=== PATIENT | male | born 1960 | race Caucasian/White ===

== ENCOUNTER → 2019-06-29 | Outpatient (CLI) | payer SELFPAY ==
[~2019-06-29] MED LIST: CATHETER FLUSH 10 ML SYR IV PRN; HOLD METFORMIN - RECEIVED CONTRAST 20 ML VIAL IV SCH; IOHEXOL 350 MG/ML 100 ML (OMNIPAQUE 350) VIAL IV ONE; NS 100 ML (IVPB) BAG IV ONE
--- NOTE | 2019-06-29 14:57 | Diagnostic Imaging Report ---
PROCEDURE: CT abdomen and pelvis with contrast. TECHNIQUE: Multiple contiguous axial images were obtained through the abdomen and pelvis after administration of intravenous contrast. Auto Exposure Controls were utilized during the CT exam to meet ALARA standards for radiation dose reduction. INDICATION: Upper abdominal pressure. COMPARISON: No prior studies are available for comparison. FINDINGS: Imaging through the lung bases does show some linear atelectasis or scarring in the right lower lobe. The liver does show some generalized low density consistent with hepatic steatosis. No discrete liver mass is detected. The gallbladder is unremarkable. No biliary ductal dilatation is seen. The pancreas and spleen are unremarkable. No adrenal mass is detected. Kidneys are unremarkable apart from tiny cortical low densities in the left kidney, too small to characterize but most likely cysts. Aorta is non-aneurysmal. There is a mildly prominent lymph node in the upper abdomen just cephalad to the pancreatic head with short axis measurement of 14 mm. Mildly prominent lymph node adjacent to the main portal vein is seen measuring 14 mm. There are shotty lymph nodes in the portacaval and left periaortic region as well as aortocaval region. The small and large bowel loops are normal in caliber. There is no obstruction. Appendix is visualized in the right lower quadrant and appears unremarkable. There is no free fluid in the abdomen. No fluid collection or free air is identified. No inflammatory changes are seen. The bladder is unremarkable. Prostate is unremarkable. No definite pelvic lymphadenopathy is seen. The bony structures are nonacute. IMPRESSION: 1. Right basilar subsegmental atelectasis or scarring. 2. Hepatic steatosis. 3. Mildly prominent lymph nodes in the upper abdomen, as described, exact etiology is indeterminate. Follow-up could be performed. No acute feature in the abdomen is identified. Dictated by: Dictated on workstation # [id number]
== END ==
LOC: RAD 13:40
PROVIDERS: ATTEND Family Medicine
DX: K76.0 Fatty (change of) liver, not elsewhere classified (principal); R59.0 Localized enlarged lymph nodes
CPT/HCPCS: 74177

== ENCOUNTER → 2019-08-23 | Outpatient (CLI) | payer OTHER ==
[~2019-08-23] VITALS: Ht 183 cm; Wt 100.0 kg
[~2019-08-23] MED LIST changes: -HOLD METFORMIN - RECEIVED CONTRAST 20 ML VIAL IV SCH; -IOHEXOL 350 MG/ML 100 ML (OMNIPAQUE 350) VIAL IV ONE; -NS 100 ML (IVPB) BAG IV ONE; +REGADENOSON 0.4 MG/5 ML SYR (LEXISCAN) IV ONE
[2019-08-24 16:44] VITALS: BP 148/97
--- NOTE | 2019-08-24 16:44 | Cardiology Stress Test Report ---
Stress Test Report Type of NM Stress Test: Test Type: LEXISCAN 0.4MG/5ML Date of Procedure/Referring: Date of Procedure: August 23, 2019 PCP Janny Lee MD Admitting Physician Abdi Fierro MD Indications: Shortness of breath Baseline Heart Rate: 80 Baseline Blood Pressure: Blood Pressure Systolic: 148 Blood Pressure Diastolic: 97 Baseline EKG: Baseline EKG: Sinus rhythm Summary & Conclusion: Summary: The patient was brought to the stress lab after informed consent was taken. Stress test was performed according to the Lexiscan protocol. 0.4 mg of IV Lexiscan was given. Low-grade exercise was performed. Baseline EKG showed sinus rhythm at 80 BPM and blood pressure 148/97 mmHg. Patient did not have any chest pain, arrhythmias or ST segment changes during the stress test. 10.15 mCi of Myoview were given for rest imaging and 29.3 mCi of Myoview given for stress imaging. Transient ischemic dilatation score 1.01, EF 63 percent. Normal wall motion. Normal myocardial perfusion imaging during rest and stress. Conclusion: Pharmacological stress test was negative for ischemia. Normal LV function with no wall motion abnormalities. Normal myocardial perfusion imaging during rest and stress. Sherlyn MICHAUD MD August 24, 2019 16:44
== END ==
LOC: CARD 11:16
PROVIDERS: ATTEND Internal Medicine Cardiovascular Disease
DX: R06.02 Shortness of breath (principal)
CPT/HCPCS: 78452; 93017

== ENCOUNTER → 2019-08-31 | Outpatient (CLI) | payer OTHER ==
[2019-08-31 12:45] LABS: BUN/CREATININE RATIO 9; CALCIUM 9.3 MG/DL (8.5-10.1); CARBON DIOXIDE 26 MMOL/L (21-32); CHLORIDE 103 MMOL/L (98-107); CREATININE SERUM 0.74 MG/DL (0.60-1.30); GFR ESTIMATED > 60; GLUCOSE 98 MG/DL (70-105); POTASSIUM 4.7 MMOL/L (3.6-5.0); SODIUM 139 MMOL/L (135-145)
--- NOTE | 2019-08-31 15:40 | Diagnostic Imaging Report ---
PROCEDURE: CT chest with and without contrast. TECHNIQUE: Multiple contiguous axial images were obtained through the chest before and after administration of intravenous contrast. Auto Exposure Controls were utilized during the CT exam to meet ALARA standards for radiation dose reduction. INDICATION: Shortness of breath. COMPARISON: None available. FINDINGS: No endoluminal nodule within the trachea. No pulmonary mass or concerning nodule. No consolidations. Linear subsegmental atelectasis is present along the right hemithorax. No pleural effusion or pneumothorax. Thyroid is normal. No supraclavicular or axillary lymphadenopathy. No mediastinal or juxtaphrenic lymphadenopathy. Borderline enlarged right hilar lymph nodes are likely reactive in nature from prior inflammatory/infectious process. Heart is normal in size without pericardial effusion. Mild ectasia of the ascending aorta measuring up to 4.3 cm. Moderate calcified plaquing of the coronary arteries. No acute or concerning abnormality in the upper abdomen. No concerning focal osseous lesions. IMPRESSION: 1. No acute intrathoracic process. 2. No features of neoplasm in the chest. 3. Mild ectasia of the ascending aorta measuring 4.3 cm. Dictated by: Dictated on workstation # [id number]
== END ==
LOC: RAD 12:12
PROVIDERS: ATTEND Internal Medicine Cardiovascular Disease
DX: I77.819 Aortic ectasia, unspecified site (principal); R06.00 Dyspnea, unspecified
CPT/HCPCS: 36415; 71270; 80048

== ENCOUNTER → 2020-02-07 | Outpatient (CLI) | payer OTHER ==
[~2020-02-07] MED LIST changes: -CATHETER FLUSH 10 ML SYR IV PRN; -REGADENOSON 0.4 MG/5 ML SYR (LEXISCAN) IV ONE; +RT-ALBUTEROL SULF 2.5 MG/3 ML PRE-MIX VIAL INH ONE
== END ==
LOC: RT 14:27
PROVIDERS: ATTEND Internal Medicine Cardiovascular Disease
DX: R06.02 Shortness of breath (principal)
CPT/HCPCS: 94060; 94726; 94729